=== PATIENT | female | born 1975 ===

== ENCOUNTER 2024-06-18 07:00 | Day surgery (SDC) | payer OTHER ==
[2024-06-18] MEDS ORDERED: fentaNYL CITRATE 50 MCG/ML AMPUL IV PUSH ONE (09:45)
[2024-06-18] MEDS ORDERED: DIPHENHYDRAMINE HCL 50 MG/ML VIAL 1ML IV ONE (09:45)
[2024-06-18] MEDS ORDERED: MIDAZOLAM HCL 2 MG/2 ML VIAL IV ONE (09:45)
== END 2024-06-18 11:05 | disposition home or self-care (01) ==
LOC: AMB-ENDOS 07:00
PROVIDERS: ATTEND Colon & Rectal Surgery
DX: D12.8 Benign neoplasm of rectum (principal); K62.5 Hemorrhage of anus and rectum; Z12.11 Encounter for screening for malignant neoplasm of colon